=== PATIENT | male | born 1960 | race Caucasian/White ===

== ENCOUNTER → 2017-08-28 | Outpatient (CLI) | payer BC ==
[~2017-08-28] MED LIST: FERR324T PO; SIMV40TA2 PO; TELM40TA11 PO; WARF1TAB PO
[2017-08-28 13:33] LABS: HEMATOCRIT 42.6 % (42-52); MEAN CELL VOLUME 85.9 fL (80-100); MEAN CORPUSCULAR HEMOGLOBIN 29.8 pg (25-34); MEAN CORPUSCULAR HGB CONC 34.7 g/dl (32-36); PLATELET COUNT 175 K/uL (130-400); RED BLOOD COUNT 4.96 M/uL (4.7-6.1); WHITE BLOOD COUNT 4.08 K/uL (4.8-10.8)
== END | disposition home or self-care (01) ==
LOC: C.LABBC 11:16
PROVIDERS: ATTEND Orthopaedic Surgery Sports Medicine
DX: T84.89XA Other specified complication of internal orthopedic prosthetic devices, implants and grafts, initial encounter (principal); Y83.1 Surgical operation with implant of artificial internal device as the cause of abnormal reaction of the patient, or of later complication, without mention of misadventure at the time of the procedure

== ENCOUNTER 2020-06-08 10:30 | Observation (INO) ==
--- NOTE | 2020-05-24 14:51 | PAT Medication Instructions ---
Medication Instructions Date of Service May 24, 2020 Home Medications amlodipine 5 mg PO QAM aspirin 81 mg PO QAM omeprazole 20 mg PO QAM rosuvastatin 40 mg PO QAM tamsulosin 0.4 mg PO HS ASK your surgeon for instructions aspirin 81 mg PO QAM Take morning of surgery With a small sip of water, OTHERWISE NOTHING TO EAT OR DRINK AFTER MIDNIGHT: amlodipine 5 mg PO QAM omeprazole 20 mg PO QAM rosuvastatin 40 mg PO QAM Take evening before surgery tamsulosin 0.4 mg PO HS Other Notes If you have any questions please call us at [phone] or [phone] or [phone] or [phone]
--- NOTE | 2020-05-25 10:53 | Anesthesiology Consultation ---
Date of Service May 25, 2020 Assessment & Plan (1) Encounter for pre-operative examination: COVID Status: As of 05/25 assessment, patient denies travel to endemic area, known exposure/sick contacts, or symptoms of COVID19. Patient instructed that they and their household members must follow strict social distancing guidelines, wear a mask in public and avoid travel for 14 days prior to surgery. Preoperative COVID19 testing to be completed prior to surgery per surgeon's arrangements (06/01). Patient made aware to self-isolate as much as possible between COVID testing and surgery. Chart Review Chart Review: Acceptable Risk for Surgery (pending pre op labs to be done at [facility]) and Patient seen in Pre Admission Testing Teaching & Discussion Instructed NPO after midnight before surgery, except medications with 15 cc of water. Medication instructions provided according to the PAT guidelines. History Surgery Operation Date: 06/08/20 12:30 Proposed Procedures p Left Total Knee Revision - Vadim Bearden MD Height/Weight Height: 5 ft 5 in Weight: 85.3 kg Allergies Allergy/AdvReac Type Severity Reaction Status Date / Time No Known Allergies Allergy Verified 05/18/20 08:14 Medications Home Medications Medication Instructions Recorded Confirmed Last Taken amlodipine 5 mg PO QAM 05/18/20 05/18/20 Unknown aspirin 81 mg PO QAM 05/18/20 05/18/20 Unknown omeprazole 20 mg PO QAM 05/18/20 05/18/20 Unknown rosuvastatin 40 mg PO QAM 05/18/20 05/18/20 Unknown tamsulosin 0.4 mg PO HS 05/18/20 05/18/20 Unknown Wheeled Walker #1 ea 05/25/20 05/25/20 Unknown Past Medical History Medical History Barretts esophagus BPH (benign prostatic hyperplasia) GERD (gastroesophageal reflux disease) Hyperlipidemia Hypertension Osteoarthritis Exercise / Class Metabolic Activity II 4-5 Yardwork/Stairs/Walk up hill Past Family History Family History Mother Family history of diabetes mellitus Grandmother (Maternal) Family history of diabetes mellitus Past Surgical History Surgical History History of colonoscopy History of esophagogastroduodenoscopy (EGD) History of revision of total knee arthroplasty RT History of tooth extraction History of total knee replacement RT/LEFT Past Anesthesia History No Hx of Anesthesia Complications and No Family Hx of Anesthesia Complications History of PONV No Hx of PONV and No Hx of Motion Sickness Social History Smoking Status: Never smoker Do You Dip or Chew Tobacco: No Hx Alcohol Use: No Hx Substance Use: No substance use type: does not use Review of Systems Pt denies any recent chest pain, shortness of breath, palpitations, cough, fever, URI, or uncontrolled acid reflux. Physical Exam Vital Signs BP: 134/88 P: 70bpm SPO2: 95% RA T: 98.5 F R: 16 ENMT Mouth: + dental restorations (crown on upper front and rear lower molar); no chipped teeth and no loose teeth Thyromental Distance: > or= 3.5 Finger Breadths (3.5) Mallampati Class: II Neck normal visual inspection; neck extension not limited Respiratory normal respiratory effort Auscultation: lungs clear to auscultation bilaterally Cardiovascular Rate/Rhythm: regular rate and regular rhythm Heart Sounds: no murmur Vessels: no carotid bruit Extremities: no edema Testing Laboratory Results Blood Type O Positive 05/25/20 11:18 Antibody Screen NEGATIVE 05/25/20 11:18 05/25/20 Unknown Gram Stain - Final Joint Fluid,Knee Aerobic and Anaerobic Culture - Preliminary No growth to date. Electrocardiogram Date: 05/25/20 Findings: + SB @ (57bpm) iRBBB, new compared to 2012 EKG. Chest X-Ray Date: 05/25/20 Findings: + NAD
--- NOTE | 2020-05-25 11:44 | XRay Report ---
XR chest Pre-admission PA/Lat CLINICAL HISTORY: Preoperative evaluation. COMPARISON STUDY: Chest radiograph June 13, 2013. FINDINGS: Lung volumes are normal. Lungs are clear. There is no pneumothorax or pleural effusion. Car diomediastinal silhouette is stable. There is no evidence for pulmonary edema. IMPRESSION: No acute cardiopulmonary findings. ACT 112: Negative or not required by law. Electronically signed by: Julio C Marsh M.D. 05/25/2020 11:42 AM
[2020-05-25 13:23] LABS: Appearance Synovial Fluid CLOUDY; Color Synovial Fluid YELLOW; Mononuclear WBC Synovial 52.9 %; Polynuclear WBC Synovial 47.1 %; RBC Synovial Fluid (A) < 3000 /uL; Source Synovial Fluid KNEE; WBC Synovial Fluid (A) 587 /ul (0-200)
--- NOTE | 2020-05-25 16:08 | Electrocardiogram Report ---
Test Reason : Blood Pressure : / mmHG Vent. Rate : 057 BPM Atrial Rate : 057 BPM P-R Int : 186 ms QRS Dur : 114 ms QT Int : 418 ms P-R-T Axes : 051 030 017 degrees QTc Int : 406 ms Sinus bradycardia Incomplete right bundle branch block Borderline ECG When compared with ECG of 13-JUN-2013 12:12, Incomplete right bundle branch block is now Present Confirmed by Raman Olmstead ([id number]) on 05/25/2020 4:08:00 PM Referred By: Vadim Bearden Confirmed By:Raman Olmstead
[~2020-06-08 10:30] MED LIST changes: +ACETAMINOPHEN 500 MG TAB PO SCH; +BUPIVACAINE 0.5 % 5 MG/1 ML PF 10ML VIAL ONE; +BUPIVACAINE LIPOSOME/PF 266 MG, BUPIVACAINE/EPINEPHRINE 50 ML, SODIUM CHLORIDE 0.9% 30 ... INFIL SCH; +CEFAZOLIN 2000MG 2,000 MG/15 ML SYR IV SCH; +EPINEPHrine INJ 1 MG/ML AMP ONE; +FAMOTIDINE 20 MG TAB PO SCH; -FERR324T PO; +GABAPENTIN 600 MG DOSE PO SCH; +LR 500ML BOLUS, THEN 15ML/HR IV SCH; +LR 60ML/HR IV SCH; +METOCLOPRAMIDE HCL 10 MG TABLET PO SCH; +ROPIVACAINE 0.5% 5 MG/ML 30 ML VIAL ONE; -SIMV40TA2 PO; -TELM40TA11 PO; +TRANEXAMIC ACID 1,000 MG **IV Intra-op IV SCH; -WARF1TAB PO
--- NOTE | 2020-06-08 11:06 | History & Physical Bridge Note ---
Date of Service June 08, 2020 History & Physical Bridge Note I have examined the patient, reviewed the History & Physical and in the interval since the performance of the History & Physical I have noted the following changes of clinical significance: no changes noted
[2020-06-08] MEDS ORDERED: ATROPINE SULFATE 0.1 MG/ML 10ML SYR IV PRN (12:21)
[2020-06-08] MEDS ORDERED: HYDROmorphone INJ 2 MG/ML SYR/VIAL IV PRN (12:21)
[2020-06-08] MEDS ORDERED: ePHEDrine sulfate 50 MG/ML AMP IV PRN (12:21)
[2020-06-08] MEDS ORDERED: fentaNYL citrate 100 MCG/2 ML VIAL IV PRN (12:21)
[2020-06-08] MEDS ORDERED: PROPOFOL IV EMULSION 10 MG/ML 20 ML VIAL IV ONE ×3 (12:27→17:32)
[2020-06-08] MEDS ORDERED: LIDOCAINE HCL 2% 2 ML VIAL/AMP(20MG/ML) INFIL ONE (12:27)
[2020-06-08] MEDS ORDERED: MIDAZOLAM HCL 1 MG/ML 2ML VIAL ONE (12:28)
[2020-06-08] MEDS ORDERED: fentaNYL citrate 100 MCG/2 ML VIAL ONE ×2 (12:28→15:58)
[2020-06-08] MEDS ORDERED: BACITRACIN INJ 50,000 UNIT VIAL ONE ×2 (13:14→17:02)
[2020-06-08] MEDS ORDERED: BUPIVACAINE LIPOSOME 1.3% 266 MG/20 ML VIAL ONE (13:14)
[2020-06-08] MEDS ORDERED: SODIUM CHLORIDE 0.9% PF 50 ML VIAL ONE (13:15)
[2020-06-08] MEDS ORDERED: EPINEPHrine INJ 1 MG/ML AMP ONE (13:15)
[2020-06-08] MEDS ORDERED: BUPIVACAINE 0.25% 30 ML VIAL ONE (13:15)
[2020-06-08] MEDS ORDERED: VANCOMYCIN HCL 1000MG/20ML VIAL ONE ×2 (13:21→17:34)
[2020-06-08] MEDS ORDERED: ePHEDrine sulfate 50 MG/ML SYR ONE (16:07)
[2020-06-08] MEDS ORDERED: GLYCOPYRROLATE 0.2 MG/ML VIAL ONE (16:40)
--- NOTE | 2020-06-08 18:15 | Post Operative Brief Note ---
PG Immediate Post Op with CF Date of Surgery June 08, 2020 Pre & Post Diagnosis Operation Date: 06/08/20 12:30 Pre-Op Diagnosis: Loose Total Knee Arhtroplasty, Painful total knee Post-Op Diagnosis: Loose Total Knee Arhtroplasty, Painful total knee I identified the patient and participated in the time-out.: Yes Procedure Operation Date: 06/08/20 12:30 Actual Procedures p Left Total Knee Revision(Left) - Vadim Bearden MD Surgeon Vadim Bearden MD Press Brake Operator Kavitha Munguia, PAC Estimated Blood Loss 400 Findings Consistent with Post-Op Diagnosis Fluids 1800 cc Specimens Specimen Description: Culture 1: Left knee synovial fluid for stat culture, sensitivity, aerobic, anerobic (left OR at 1440) Frozen section #1: Left knee synovium Drains Jiang Catheter Anesthesia Type Spinal MAC Complications none Disposition Accompanied Patient To Recovery: No Disposition: Recovery Room
[2020-06-08] MEDS ORDERED: CEFAZOLIN 2000MG 2,000 MG/15 ML SYR IV ONE (18:40)
--- NOTE | 2020-06-08 18:52 | XRay Report ---
XR knee LT 1 or 2V routine CLINICAL HISTORY: Postoperative evaluation. COMPARISON: Knee radiographs March 28, 2020. FINDINGS: Alignment of the revision total left knee arthroplasty is anatomic. There is no periprosth etic fracture or unexpected radiopaque foreign body. There are skin yaritza. IMPRESSION: Expected findings following revision total left knee arthroplasty. ACT 112: Negative or not required by law. Electronically signed by: Julio C Marsh M.D. 06/08/2020 6:51 PM
[2020-06-08] MEDS ORDERED: MAGNESIUM HYDROXIDE SUSP 30 ML UDC PO PRN (19:30)
[2020-06-08] MEDS ORDERED: bisacodyL 10 MG SUPP PR PRN (19:30)
[2020-06-08] MEDS ORDERED: ALUMINUM/MAGNESIUM SUSP 30 ML UDC PO PRN (19:30)
[2020-06-08] MEDS ORDERED: NALOXONE HCL 0.4 MG/1 ML VIAL/CARP IV PRN (19:31)
[2020-06-08] MEDS ORDERED: METOCLOPRAMIDE HCL INJ 5 MG/ML 2 ML VIAL IV PRN (19:31)
[2020-06-08] MEDS ORDERED: ONDANSETRON INJ 2 MG/ML 2 ML VIAL IV PRN (19:31)
[2020-06-08] MEDS ORDERED: HYDROmorphone INJ 0.5 MG/0.5 ML SYR IV PRN (20:00)
--- NOTE | 2020-06-08 20:23 | Anesthesiology Progress Note ---
Date of Service June 08, 2020 Anesthesia Post Procedure Vital Signs Vital Signs: Temp Pulse Pulse Resp BP Pulse Ox 06/08/20 20:12 36.3 C L 56 L 16 132/86 92 06/08/20 19:40 36.8 C 64 14 123/83 93 06/08/20 19:10 36.6 C 65 16 143/92 H 95 06/08/20 18:55 56 L 18 138/91 96 06/08/20 18:40 36.5 C 61 18 141/79 H 96 06/08/20 18:30 67 18 139/90 100 06/08/20 18:21 36.4 C L 50 L 16 125/86 100 06/08/20 11:38 63 18 175/103 H 97 06/08/20 11:01 36.8 C 61 18 158/109 H 97 Pain Intensity Left Leg: Pain Intensity: 3 Transfer of Care Handoff Completed per policy Notes Mental Status: alert / awake / arousable and participated in evaluation Patient Amnestic to Procedure: Yes Nausea / Vomiting: adequately controlled Pain: adequately controlled Airway Patency, RR, SpO2: stable & adequate BP & HR: stable & adequate Hydration State: stable & adequate Neuraxial Anesthesia: was administered and sensory block is resolving Anesthetic Complications: no major complications apparent and Pt Satisfied with anesthetic care
[2020-06-08] MEDS: SODIUM CHLORIDE 0.9% 1000ML 1,000 ML IV SCH (20:24)
[2020-06-08] MEDS: Scopolamine CHECK PATCH PLACEMENT SCH ×2 (20:24→23:45)
[2020-06-08] MEDS: CEFAZOLIN 2000MG 2,000 MG/15 ML SYR IV SCH (21:13)
[2020-06-08] MEDS: ASPIRIN 81 MG ECTAB PO SCH (21:14)
[2020-06-08] MEDS: ACETAMINOPHEN 500 MG TAB PO SCH (21:14)
[2020-06-08] MEDS: DOCUSATE SODIUM 100 MG CAP PO SCH (21:14)
[2020-06-08] MEDS: SENNA 8.6 MG TAB PO SCH (21:15)
[2020-06-08] MEDS: TAMSULOSIN HCL 0.4 MG CAP PO SCH (21:15)
[2020-06-08] MEDS: KETOROLAC 30 MG/ML VIAL IV SCH (21:15)
[2020-06-08] MEDS: TAPENTADOL HCL ER 50 MG TABCR PO SCH (21:26)
[2020-06-09] MEDS: KETOROLAC 30 MG/ML VIAL IV SCH ×5 (02:45→23:39)
[2020-06-09] MEDS: ACETAMINOPHEN 500 MG TAB PO SCH ×3 (05:05→21:16)
[2020-06-09] MEDS: CEFAZOLIN 2000MG 2,000 MG/15 ML SYR IV SCH (05:06)
[2020-06-09] MEDS: SODIUM CHLORIDE 0.9% 1000ML 1,000 ML IV SCH (05:34)
[2020-06-09 05:57] LABS: Hematocrit (blood only) 33.1 % (42-52); Hemoglobin 11.8 g/dL (14.0-18.0); Mean Corpuscular Hemoglobin 29.9 pg (25-34); Mean Corpuscular Hgb Conc 35.6 g/dL (32-36); Mean Platelet Volume 8.6 fL (7.4-10.4); Platelet Count 148 K/uL (130-400); RDW Coefficient of Variation 12.7 % (11.5-14.5); RDW Standard Deviation 38.9 fL (36.4-46.3); Red Blood Count 3.94 M/uL (4.7-6.1); White Blood Count 6.89 K/uL (4.8-10.8)
[2020-06-09 06:23] LABS: BUN Creatinine Ratio 14.6 (10-20); Calcium 7.9 mg/dl (8.5-10.1); Creatinine Clr Calc Pharmacy 70.2 ml/min; Est GFR (African American) 83.9; Est GFR (Non-African American) 72.4; Potassium 3.9 mmol/L (3.5-5.1)
--- NOTE | 2020-06-09 08:31 | Progress Notes ---
DATE: 06/09/2020 SUBJECTIVE: A 60-year-old gentleman postop day 1 from a left revision knee arthroplasty for aseptic loosening. He is doing well. Really not having any pain yet. No chest pain or shortness of breath. Not feeling dizzy or lightheaded. OBJECTIVE: VITAL SIGNS: Temperature is 36.7. Vital signs stable. GENERAL: Physical examination shows a pleasant, middle-aged male. He is sitting up in bed, looks comfortable. LUNGS: Clear to auscultation. HEART: Has a regular rate and rhythm. ABDOMEN: Soft, nontender, nondistended. EXTREMITIES: Grossly neurovascularly intact except as follows: Examination of the left leg reveals the dressing to be clean, dry, and intact. Leg is well aligned. He can dorsiflex and plantarflex his foot appropriately. He is neurologically intact. LABORATORY DATA: Hemoglobin 11.8. Hematocrit 33.1. Electrolytes are stable. ASSESSMENT: A 60-year-old gentleman postop day 1 from a left revision knee arthroplasty for aseptic loosening. He is doing well. His pain is controlled. He is neurologically intact. PLAN: 1. DVT prophylaxis including thigh-high TEDs, SCDs, and aspirin twice a day. 2. PT/OT. Weight bear as tolerated. Left total knee protocol. 3. Pain control, doing well with current pain regimen. 4. Disposition: He is planning to be discharged to home likely with some home health once adequately recovered and medically stable.
[2020-06-09] MEDS: Scopolamine CHECK PATCH PLACEMENT SCH ×2 (08:47→15:56)
[2020-06-09] MEDS: FERROUS GLUCONATE 324 MG TAB PO SCH ×2 (08:47→15:57)
[2020-06-09] MEDS: MULTIVITAMIN TAB PO SCH (08:48)
[2020-06-09] MEDS: DOCUSATE SODIUM 100 MG CAP PO SCH ×2 (08:48→21:16)
[2020-06-09] MEDS: PANTOprazole 40 MG TAB PO SCH (08:48)
[2020-06-09] MEDS: ROSUVASTATIN CALCIUM 20 MG TAB PO SCH (08:49)
[2020-06-09] MEDS: ASCORBIC ACID 500 MG TAB PO SCH ×2 (08:49→15:57)
[2020-06-09] MEDS: TAPENTADOL HCL ER 50 MG TABCR PO SCH ×2 (08:53→21:17)
[2020-06-09] MEDS: AMLODIPINE BESYLATE 5 MG TAB PO SCH (08:57)
--- NOTE | 2020-06-09 09:13 | Operative Report ---
Post Operative Report Pre & Post Diagnosis Operation Date: 06/08/20 12:30 Pre-Op Diagnosis: Aseptic loosening left total knee arthroplasty Post-Op Diagnosis: Aseptic loosening left total knee arthroplasty I identified the patient and participated in the time-out.: Yes Procedure Operation Date: 06/08/20 12:30 Actual Procedures p Left Total Knee Revision(Left) - Vadim Bearden MD Surgeon Vadim Bearden MD Sawmill Moulder Operator Kavitha Munguia, PAC Estimated Blood Loss 400 Findings Consistent with Post-Op Diagnosis Operative findings revealed an loose femoral component. Moderate to large knee joint effusion. Significant ostial lysis around the femoral component particular the posterior aspect of the femoral condyles. The tibial implant was still well fixed. The patella was well fixed with minimal wear. Fluids 1800 cc. Specimens Left knee synovium sent for frozen section which revealed less than 5 polys per high-power field. Knee joint fluid sent for stat Gram stain and aerobic anaerobic culture Drains None. Anesthesia Type Spinal MAC Complications none Disposition Accompanied Patient To Recovery: No Disposition: Recovery Room Indications Patient is a 60-year-old gentleman is had both knees replaced done elsewhere a many years ago. The left knee was done about 10 years ago. Over the past couple years he developed increased pain discomfort and swelling in his knee that is only gotten worse over the past year. X-ray suggest loosening of the femoral component. He had a work-up which was negative for infection. Bone scan also suggested loosening of the femoral component. Patient elected proceed with surgical revision. Description of Procedure Operative implants consist of: 1. Biomet Vanguard III 60 size 65 left Po stabilized femoral component with 80 x 15 mm stem and a 2.5 mm offset and a 5 mm medial and lateral distal augments and a 5 mm posterior lateral augment. 2. Biomet Vanguard III 60 size 67 tibial tray with a 13 x 80 mm stem and a 5 mm offset, small cruciate wing, and 5 mm medial and lateral augments. 3. 16 mm Po stabilized polyethylene insert. Patient was taken the operating identified and placed on the operating table supine position protectors were properly padded. IV antibiotics arrived by anesthesia team. A spinal anesthetic and abductor canal block had provided in the holding area. Jiang catheter was placed in sterile fashion the left atrium was then placed in the left lower extremities and prepped draped in usual sterile fashion. The left leg was elevated exsanguinated with use of an Esmarch and turns placed at 300 mmHg. An anterior approach to the left knee was then performed through longitudinal incision using the previous incision and extending it just slightly proximal and distal. Sharp dissection got through subcutaneous this down to the extensor mechanism. A medial parapatellar arthrotomy incision was made. Some subperiosteal dissection was carried out medially. A complete synovectomy of the suprapatellar pouch medial lateral gutters was then performed. I sent the synovium off for frozen section which revealed no acute inflammation less than 5 polys per high-power field. We also sent some of the fluid off for stat Gram stain and aerobic anaerobic culture. Considering these results we proceed with revision. I define the edges of all the implants. I first remove the polyethylene without difficulty. There was pretty minimal wear. I then was able to move the femoral component by just tapping on it with some osteotomes. It was clearly loose with quite a bit of ostial lysis particularly posteriorly. Attention drawn the tibial component. With use of the microsagittal saw, some artist chisels and the [employer] extractor the tibial component was removed. It was extremely well fixed and took almost an hour to get the implant out without having a significant bone damage. I then very carefully chipped away at the bone cement mantle removed all the cement. I then examined the patella and it was well preserved and we elected not to addres s that. Attention drawn the tibia. The intramedullary canal was reamed up to a size 13. I then cut the proximal tibia removed 2 mm of bone from the medial side. We then sized this to a size 67 and prepared it for 67 tibial tray with a 5 mm offset and a small cruciate wing. The implant was assembled and fit nicely. We did place 5 mm augments medially and laterally as it was some bone destruction in order to build up the tibia. Attention drawn the femur. The distal femur surrounding the drill. I then reamed up to a size 15. The distal femoral cut was made to remove just a couple millimeters off the distal segment. We then sized this to a size 65. The AP cutting block was pinned parallel to the epicondylar axis and the anterior cut, anterior chamfer, posterior cut, posterior chamfer cuts were made. The implant was assembled and the box cut was then made. I then trialed the knee. It was with a 16 insert it was fit pretty nice in flexion but was still loose in extension. Therefore I placed a 5 mm augments in the distal femur and appeared well balanced. The patella tracked nicely. I elect to place these implants. The tourniquet was let down after the bone cuts were made for tourniquet time 120 minutes. This is down to 45 minutes before reinflating. All trial implants were removed. They were assembled at the back table. A double batch Palacos G cement was mixed with an additional gram of vancomycin. The femoral component was then fixed cementing the surface in the metaphysis followed by the tibia. A 16mm insert was placed. Knee was brought out in full extension total cement hardened. Final cement check was then performed. The pericapsular tissues were injected with total 100 cc of combination of 20 cc of Exparel, 30 cc normal saline, 50 cc of quarter percent Marcaine with epinephrine. Patient did receive 1 g tranexamic acid midway through the surgery. The wound was once again irrigated. The tourniquet was let down. There were 2 tourniquet times. The tourniquet was for stop for 120 minutes during removal of the implants and preparation of the bone. It was then down for 45 minutes then placed up for an additional 24 minutes during cementing. The extensor macros then closed with combination 1 PDS suture #1 Vicryl suture in a [id number] fashion to the extensor mechanism checked found to be intact the subcutaneous tissue then closed with 2 Dexon suture in a buried interrupted fashion skin was closed skin yaritza. Leg was then cleaned and dried and sterile dressed composed Xeroform, 4 x 4's, sterile cast padding Jonathan bandage were applied. The patient then transferred to the recovery room in stable condition. Patient tolerated procedure no complications I attest to the content of the Intraoperative Record and any orders documented therein. Any exceptions are noted below.
[2020-06-09] MEDS: ASPIRIN 81 MG ECTAB PO SCH ×2 (09:48→21:16)
[2020-06-09] MEDS: OXYCODONE HCL IR 5 MG TAB (IMMEDIATE RELEASE) PO PRN ×2 (15:55→23:38)
[2020-06-09] MEDS: SENNA 8.6 MG TAB PO SCH (21:17)
[2020-06-09] MEDS: TAMSULOSIN HCL 0.4 MG CAP PO SCH (21:17)
[2020-06-10] MEDS: Scopolamine CHECK PATCH PLACEMENT SCH ×2 (00:41→07:58)
[2020-06-10] MEDS: ACETAMINOPHEN 500 MG TAB PO SCH (05:25)
[2020-06-10] MEDS: KETOROLAC 30 MG/ML VIAL IV SCH (07:58)
[2020-06-10] MEDS: FERROUS GLUCONATE 324 MG TAB PO SCH (08:05)
[2020-06-10] MEDS: DOCUSATE SODIUM 100 MG CAP PO SCH (08:06)
[2020-06-10] MEDS: ASCORBIC ACID 500 MG TAB PO SCH (08:06)
[2020-06-10] MEDS: ASPIRIN 81 MG ECTAB PO SCH (08:07)
[2020-06-10] MEDS: MULTIVITAMIN TAB PO SCH (08:07)
[2020-06-10] MEDS: ROSUVASTATIN CALCIUM 20 MG TAB PO SCH (08:07)
[2020-06-10] MEDS: TAPENTADOL HCL ER 50 MG TABCR PO SCH (08:09)
[2020-06-10] MEDS: PANTOprazole 40 MG TAB PO SCH (08:09)
[2020-06-10] MEDS: AMLODIPINE BESYLATE 5 MG TAB PO SCH (08:10)
--- NOTE | 2020-06-10 09:01 | Progress Notes ---
DATE: 06/10/2020 SUBJECTIVE: A 60-year-old gentleman postop day 2 from a left knee revision for aseptic loosening. He is doing well. Not having much pain. No chest pain or shortness of breath. Not feeling dizzy or lightheaded. OBJECTIVE: VITAL SIGNS: Temperature 36.9. Vital signs stable. GENERAL: Physical examination shows a pleasant, middle-aged male. He is sitting up in his bedside chair, looks comfortable. EXTREMITIES: Examination of the left leg reveals the incision to be clean, dry and intact. Some mild swelling. He can dorsiflex and plantarflex his foot appropriately. He is neurologically intact. LABORATORY DATA: Cultures, no growth to date. ASSESSMENT: A 60-year-old gentleman postop day 2 from a left revision knee arthroplasty for aseptic loosening. He is doing well. His pain is controlled. PLAN: 1. DVT prophylaxis include thigh-high TEDs, SCDs and aspirin twice a day. 2. PT/OT. Weightbear as tolerated. Left total knee protocol. 3. Pain control, doing well with current pain regimen. 4. Disposition: Plan to discharge to home later today.
[2020-06-10] MEDS: OXYCODONE HCL IR 5 MG TAB (IMMEDIATE RELEASE) PO PRN (10:51)
--- NOTE | 2020-06-18 15:28 | Discharge Summary ---
Date of Service June 18, 2020 Admission HPI Per Admitting Provider Documented in the H & P Admission Exam (Per Admitting) Constitutional Documented in the H & P Discharge Data Consultations 06/08/20 19:07 Consult Case Management - Discharge Planning Routine Procedures Performed Operation Date: 06/08/20 12:30 Actual Procedures p Left Total Knee Revision(Left) - Vadim Bearden MD Hospital Course (1) Status post revision of total replacement of left knee: This patient is a 60 year old male admitted on 06/08/20 and underwent left total knee revision for aseptic loosening. He tolerated the procedure well and there were no complications. Transferred to the PACU post op and later to the orthopedic floor for further care. He was given ancef for antibiotic prophylaxis. He was also given KACY stockings, SCDs, and aspirin for DVT prophylaxis. Hemoglobin, hematocrit, and vital signs were monitored during his hospital stay and remained stable. Did not require any blood transfusions. There were no complications during his hospital stay. By post op day #2 the patient was tolerating a regular diet, pain was reasonably controlled with oral pain medicine, and he was participating in physical therapy. On post op day #2 the patient was discharged home. He was given printed discharge instructions including prescriptions for extra strength tylenol, as pirin, and oxycodone. Continue physical therapy, weight bearing as tolerated. Continue KACY stockings. Follow up approximately 2 weeks post op or sooner if there are problems or concerns. Coding Level of Care Code None Diagnoses Status post revision of total replacement of left knee Z96.652
== END 2020-06-10 11:35 | disposition home or self-care (01) ==
LOC: 3E 10:30 → ASU 10:30